=== PATIENT | male | born 2000 | race Caucasian/White ===

== ENCOUNTER 2021-06-25 09:01 | Emergency (ER) | payer SELFPAY ==
[~2021-06-25] VITALS: Ht 165.1 cm; Wt 58.1 kg
[2021-06-25 09:03] VITALS: BP 136/74
--- NOTE | 2021-06-25 09:15 | NUR ---
pt swabbed for novel
--- NOTE | 2021-06-25 14:11 | NUR ---
PT LWMELI. MADE AWARE. CALLED TO PHONE NO ANSWER. LEFT VOICEMAIL.
== END 2021-06-25 14:11 | disposition left against medical advice (07) ==
LOC: MED 09:01
DX: M79.10 Myalgia, unspecified site (principal); Z53.21 Procedure and treatment not carried out due to patient leaving prior to being seen by health care provider
CPT/HCPCS: U0003